=== PATIENT | female | born 1970 | race Caucasian/White ===

== ENCOUNTER 2017-11-09 07:48 | Day surgery (SDC) | payer OTHER ==
[~2017-11-09] VITALS: Ht 167.6 cm; Wt 84.5 kg
[~2017-11-09 07:48] MED LIST: AZIT250 PO; BELPTAB PO; CHOL10002 PO; CYCL10 PO; DULO60 PO; ERGO50000 PO; ESTR2 PO; ESTROGEN; HYDACE5 PO; HYDACE5325 PO; HYDGUAL120 PO; HYDR1TAB94 PO; HYOS.125 SL; IRON; MESA250ER PO; METPRE4DP PO; Norco 5-325 Ta1 EACH PO; PANT40 PO; PREG150 PO; PROM25 PO; SULTRIDS PO; TOPI100 PO; [UNRECOGNIZED DRUG - OTHER]
[2017-11-09] MEDS ORDERED: Neurontin300 MG (08:23)
[2017-11-09] MEDS ORDERED: Omeprazole20 M1 (08:23)
[2017-11-09] MEDS ORDERED: Zantac150 MG PO (08:23)
[2017-11-09] MEDS ORDERED: DULO60 PO (08:24)
[2017-11-09] MEDS ORDERED: TOPI100 (08:24)
[2017-11-09] MEDS ORDERED: SULF500A (08:24)
[2017-11-09] MEDS ORDERED: BUSP15 (08:24)
[2017-11-09] MEDS ORDERED: HYOS.125 (08:25)
[2017-11-09] MEDS ORDERED: ALBU90OI (08:25)
== END 2017-11-09 10:30 | disposition home or self-care (01) ==
LOC: ORSCSDS 07:48
PROVIDERS: Internal Medicine Gastroenterology
PROC: 0DBB8ZX Excision of Ileum, Via Natural or Artificial Opening Endoscopic, Diagnostic (ICD-10-PCS; principal; 2017-11-09 09:15)
PROC: 0DB68ZX Excision of Stomach, Via Natural or Artificial Opening Endoscopic, Diagnostic (ICD-10-PCS; principal; 2017-11-09 09:15)
DX: K50.90 Crohn's disease, unspecified, without complications (principal); K64.8 Other hemorrhoids; R13.10 Dysphagia, unspecified; K21.9 Gastro-esophageal reflux disease without esophagitis; K29.70 Gastritis, unspecified, without bleeding; Z87.11 Personal history of peptic ulcer disease; F17.210 Nicotine dependence, cigarettes, uncomplicated; Z79.899 Other long term (current) drug therapy
CPT/HCPCS: 88305; 88342; J0330; J1980; J2405

== ENCOUNTER 2018-05-31 00:28 | Day surgery (SDC) | payer OTHER ==
[~2018-05-31 00:28] MED LIST changes: +ALBU90OI; +BUSP15; +HYOS.125; +Neurontin300 MG; +Omeprazole20 M1; +SULF500A; +TOPI100; +Zantac150 MG PO
== END 2018-05-31 11:30 | disposition home or self-care (01) ==
LOC: ATC 00:28
DX: K50.90 Crohn's disease, unspecified, without complications (principal)
CPT/HCPCS: 96413; 96415; J7050; Q0163; Q5103

== ENCOUNTER 2018-06-14 07:50 | Day surgery (SDC) | payer OTHER | END 2018-06-14 11:00 | disposition home or self-care (01) | LOC: ATC 07:50 | DX: K50.90 Crohn's disease, unspecified, without complications (principal); Z79.899 Other long term (current) drug therapy | CPT/HCPCS: 96413; 96415; J7050; Q0163; Q5103 ==

== ENCOUNTER 2018-10-25 00:58 | Day surgery (SDC) | payer OTHER ==
[2018-10-25] MEDS ORDERED: INFLECTRA100 MG IV (08:18)
== END 2018-10-25 10:50 | disposition home or self-care (01) ==
LOC: ATC 00:58
DX: K50.90 Crohn's disease, unspecified, without complications (principal); K21.9 Gastro-esophageal reflux disease without esophagitis; F17.210 Nicotine dependence, cigarettes, uncomplicated
CPT/HCPCS: 96413; 96415; J7050; Q0163; Q5103

== ENCOUNTER 2019-01-06 00:11 | Day surgery (SDC) | payer OTHER ==
[~2019-01-06 00:11] MED LIST changes: +INFLECTRA100 MG IV
== END 2019-01-06 12:00 | disposition home or self-care (01) ==
LOC: ATC 00:11
DX: K50.80 Crohn's disease of both small and large intestine without complications (principal); F17.210 Nicotine dependence, cigarettes, uncomplicated; K21.9 Gastro-esophageal reflux disease without esophagitis; Z79.899 Other long term (current) drug therapy
CPT/HCPCS: J7050; Q0163; Q5103

== ENCOUNTER 2019-03-12 00:10 | Day surgery (SDC) | payer OTHER ==
[~2019-03-12 00:10] MED LIST changes: -INFLECTRA100 MG IV; -Omeprazole20 M1; -Zantac150 MG PO
[2019-07-14] MEDS ORDERED: VITAMIN D-32000 UNIT PO (14:46)
[2019-07-14] MEDS ORDERED: DULO60 PO (14:46)
[2019-07-14] MEDS ORDERED: Zantac150 MG PO (14:46)
[2019-07-14] MEDS ORDERED: INFLECTRA100 MG IV (14:47)
[2019-07-14] MEDS ORDERED: Omeprazole20 M1 (14:47)
[2019-07-14] MEDS ORDERED: DOCU100 PO (14:48)
[2019-07-14] MEDS ORDERED: ZOLP5 PO (14:48)
[2019-07-14] MEDS ORDERED: MELATONIN5 M1 PO (14:48)
== END 2019-03-12 12:25 | disposition home or self-care (01) ==
LOC: ATC 00:10
DX: K50.80 Crohn's disease of both small and large intestine without complications (principal); F17.210 Nicotine dependence, cigarettes, uncomplicated; K21.9 Gastro-esophageal reflux disease without esophagitis; Z79.899 Other long term (current) drug therapy
CPT/HCPCS: 96413; 96415; A9270; J7050; Q0163; Q5103

== ENCOUNTER 2019-05-09 00:19 | Day surgery (SDC) | payer OTHER ==
--- NOTE | 2019-05-09 09:46 | NUR ---
Pt given Loratadine instead of MD ordered diphenhydramine. Pharmacy notified that incorrect medication was put on EMAR and given. Pt already swallowed wrong medication while this RN checked order realizing to late that it was incorrect. PT states no allergies to loratadine. MD office and notified, talked with Tammi Romo MA. Will continue to monitor for any changes.
[2019-07-14] MEDS ORDERED: VITAMIN D-32000 UNIT PO (14:46)
[2019-07-14] MEDS ORDERED: Zantac150 MG PO (14:46)
[2019-07-14] MEDS ORDERED: DULO60 PO (14:46)
[2019-07-14] MEDS ORDERED: Omeprazole20 M1 (14:47)
[2019-07-14] MEDS ORDERED: INFLECTRA100 MG IV (14:47)
[2019-07-14] MEDS ORDERED: DOCU100 PO (14:48)
[2019-07-14] MEDS ORDERED: MELATONIN5 M1 PO (14:48)
[2019-07-14] MEDS ORDERED: ZOLP5 PO (14:48)
== END 2019-05-09 11:42 | disposition home or self-care (01) ==
LOC: ATC 00:19
DX: K50.00 Crohn's disease of small intestine without complications (principal); J45.909 Unspecified asthma, uncomplicated; K21.9 Gastro-esophageal reflux disease without esophagitis; F17.210 Nicotine dependence, cigarettes, uncomplicated; Z79.52 Long term (current) use of systemic steroids; Z79.899 Other long term (current) drug therapy; Z88.8 Allergy status to other drugs, medicaments and biological substances; Z91.018 Allergy to other foods
CPT/HCPCS: 96413; 96415; A9270; J7050; Q5103

== ENCOUNTER 2019-07-04 00:08 | Day surgery (SDC) | payer OTHER ==
[2019-07-14] MEDS ORDERED: Zantac150 MG PO (14:46)
[2019-07-14] MEDS ORDERED: DULO60 PO (14:46)
[2019-07-14] MEDS ORDERED: VITAMIN D-32000 UNIT PO (14:46)
[2019-07-14] MEDS ORDERED: INFLECTRA100 MG IV (14:47)
[2019-07-14] MEDS ORDERED: Omeprazole20 M1 (14:47)
[2019-07-14] MEDS ORDERED: MELATONIN5 M1 PO (14:48)
[2019-07-14] MEDS ORDERED: ZOLP5 PO (14:48)
[2019-07-14] MEDS ORDERED: DOCU100 PO (14:48)
== END 2019-07-04 23:04 | disposition home or self-care (01) ==
LOC: ATC 00:08
DX: K50.90 Crohn's disease, unspecified, without complications (principal); K21.9 Gastro-esophageal reflux disease without esophagitis; J45.909 Unspecified asthma, uncomplicated; F17.210 Nicotine dependence, cigarettes, uncomplicated; M79.7 Fibromyalgia; M19.90 Unspecified osteoarthritis, unspecified site; G43.909 Migraine, unspecified, not intractable, without status migrainosus; F41.9 Anxiety disorder, unspecified; G62.9 Polyneuropathy, unspecified; Z79.899 Other long term (current) drug therapy; Z79.52 Long term (current) use of systemic steroids; Z91.041 Radiographic dye allergy status; Z91.018 Allergy to other foods; Z88.6 Allergy status to analgesic agent

== ENCOUNTER 2019-08-20 00:12 | Day surgery (SDC) | payer OTHER ==
[~2019-08-20 00:12] MED LIST changes: +DOCU100 PO; +INFLECTRA100 MG IV; +MELATONIN5 M1 PO; +Omeprazole20 M1; +VITAMIN D-32000 UNIT PO; +ZOLP5 PO; +Zantac150 MG PO
== END 2019-08-20 22:38 | disposition home or self-care (01) ==
LOC: ATC 00:12
DX: K50.80 Crohn's disease of both small and large intestine without complications (principal); K21.9 Gastro-esophageal reflux disease without esophagitis; M79.7 Fibromyalgia; J45.909 Unspecified asthma, uncomplicated; F41.9 Anxiety disorder, unspecified; M50.30 Other cervical disc degeneration, unspecified cervical region; G47.00 Insomnia, unspecified; Z87.891 Personal history of nicotine dependence; Z91.018 Allergy to other foods; Z91.041 Radiographic dye allergy status; Z88.6 Allergy status to analgesic agent; Z90.49 Acquired absence of other specified parts of digestive tract; Z98.0 Intestinal bypass and anastomosis status; Z79.899 Other long term (current) drug therapy
CPT/HCPCS: 96413; 96415; A9270; J7050; Q0163; Q5103

== ENCOUNTER 2020-02-18 00:11 | Day surgery (SDC) | payer OTHER ==
[2020-02-18] MEDS ORDERED: CYCL10 PO (14:45)
[2020-02-18] MEDS ORDERED: Flonase 0.05% N16 GM (14:46)
[2020-02-18] MEDS ORDERED: GABA100 PO (14:47)
[2020-02-18] MEDS ORDERED: Sulfazine500 MG PO (14:48)
[2020-02-18] MEDS ORDERED: Imitrex100 MG PO (14:51)
[2020-02-18] MEDS ORDERED: ONDA4 PO (14:52)
[2020-02-18] MEDS ORDERED: Ventolin/Prove6.7 GM INH (14:53)
== END 2020-02-18 14:40 | disposition home or self-care (01) ==
LOC: ATC 00:11
DX: M77.11 Lateral epicondylitis, right elbow (principal); J45.909 Unspecified asthma, uncomplicated; Z87.891 Personal history of nicotine dependence; Z88.8 Allergy status to other drugs, medicaments and biological substances; Z91.018 Allergy to other foods; Z79.899 Other long term (current) drug therapy
CPT/HCPCS: 96375; 96413; 96415; A9270; J1720; J7050; Q0163; Q5103

== ENCOUNTER 2020-04-02 01:47 | Day surgery (SDC) | payer OTHER ==
[~2020-04-02 01:47] MED LIST changes: +Flonase 0.05% N16 GM; +GABA100 PO; +Imitrex100 MG PO; +ONDA4 PO; +Sulfazine500 MG PO; +Ventolin/Prove6.7 GM INH
== END 2020-04-02 11:24 | disposition home or self-care (01) ==
LOC: ATC 01:47
DX: K50.90 Crohn's disease, unspecified, without complications (principal); M77.11 Lateral epicondylitis, right elbow; Z87.891 Personal history of nicotine dependence; Z88.8 Allergy status to other drugs, medicaments and biological substances; Z91.018 Allergy to other foods
CPT/HCPCS: 96375; 96413; 96415; A9270; J1720; J7050; Q0163; Q5103

== ENCOUNTER 2021-06-22 00:50 | Day surgery (SDC) | payer OTHER ==
[~2021-06-22 00:50] MED LIST changes: +LINZESS290 MCG PO
[2021-06-22] MEDS ORDERED: TIZA4 PO (08:54)
[2021-06-22] MEDS ORDERED: HYDROCODONE-AC1 EA14 PO (08:55)
[2021-06-22] MEDS ORDERED: PREG25 PO (08:55)
== END 2021-06-22 11:25 | disposition home or self-care (01) ==
LOC: ATC 00:50
DX: K50.90 Crohn's disease, unspecified, without complications (principal); Z90.710 Acquired absence of both cervix and uterus; Z87.891 Personal history of nicotine dependence
CPT/HCPCS: 96413; 96415; A9270; J7050; Q5103

== ENCOUNTER 2021-08-03 01:50 | Day surgery (SDC) | payer OTHER ==
[~2021-08-03 01:50] MED LIST changes: +HYDROCODONE-AC1 EA14 PO; +PREG25 PO; +TIZA4 PO
== END 2021-08-03 17:08 | disposition home or self-care (01) ==
LOC: ATC 01:50
DX: K50.90 Crohn's disease, unspecified, without complications (principal); K21.9 Gastro-esophageal reflux disease without esophagitis; Z88.8 Allergy status to other drugs, medicaments and biological substances; Z79.899 Other long term (current) drug therapy
CPT/HCPCS: 96413; 96415; A9270; J7050; Q5103

== ENCOUNTER → 2021-10-10 | Outpatient (CLI) | payer OTHER ==
[~2021-10-10] MED LIST changes: +ALBU8HFA2 INH; +Capzasin-Hp42.5 GM TOP; +HYDROCODONE-AC1 EAC7 PO; +PREGABALIN150 M5 PO; +VICODIN HP 10-1 EAC1 PO
[2021-10-10 19:13] LABS: BASOPHILS ABSOLUTE AUTO 0.07 K/mm3 (0.00-0.23); BASOPHILS PERCENT AUTO 1 % (0-2); EOSINOPHILS ABSOLUTE AUTO 0.29 K/mm3 (0.00-0.68); EOSINOPHILS PERCENT AUTO 5 % (0-6); Hematocrit 38.3 % (33.0-51.0); Hemoglobin 12.4 g/dL (11.5-16.0); IMMATURE GRAN ABSOLUTE AUTO 0.01 K/mm3 (0.00-0.10); IMMATURE GRAN PERCENT AUTO 0 % (0-1); LYMPHOCYTES ABSOLUTE AUTO 3.17 K/mm3 (0.84-5.20); LYMPHOCYTES PERCENT AUTO 52 % (21-46); MONOCYTES ABSOLUTE AUTO 0.39 K/mm3 (0.16-1.47); MONOCYTES PERCENT AUTO 6 % (4-13); Mean Corpuscular HGB 29.8 pg (26.0-34.0); Mean Corpuscular HGB Conc 32.4 g/dL (31.5-36.5); Mean Corpuscular Volume 92 fL (80-100); Mean Platelet Volume 10.3 fL (9.1-12.4); NEUTROPHILS ABSOLUTE AUTO 2.12 K/mm3 (1.96-9.15); NEUTROPHILS PERCENT AUTO 35 % (41-73); Platelet Count 314 K/mm3 (150-400); RDW Coefficient Variation 11.8 % (11.7-14.2); RDW Standard Deviation 39.8 fL (35.1-46.3); Red Blood Cell Count 4.16 M/mm3 (3.80-5.20); White Blood Cell Count 6.05 K/mm3 (4.00-11.30)
[2021-10-10 20:44] LABS: Adenovirus Not Detected (NOT DETECT); Bordetella pertussis Not Detected (NOT DETECT); Chlamydophila pneumoniae Not Detected (NOT DETECT); Coronavirus 229E Not Detected (NOT DETECT); Coronavirus HKU1 Not Detected (NOT DETECT); Coronavirus NL63 Not Detected (NOT DETECT); Coronavirus OC43 Not Detected (NOT DETECT); Human Metapneumovirus Not Detected (NOT DETECT); Human Rhinovirus/Enterovirus Not Detected (NOT DETECT); Influenza A/2009-H1 Not Detected (NOT DETECT); Influenza A/H1 Not Detected (NOT DETECT); Influenza A/H3 Not Detected (NOT DETECT); Influenza B Not Detected (NOT DETECT); Mycoplasma pneumoniae Not Detected (NOT DETECT); Parainfluenza Virus 1 Not Detected (NOT DETECT); Parainfluenza Virus 2 Not Detected (NOT DETECT); Parainfluenza Virus 3 Not Detected (NOT DETECT); Parainfluenza Virus 4 Not Detected (NOT DETECT); Respiratory Syncytial Virus Not Detected (NOT DETECT); SARS-Cov-2 (COVID-19), BioFire Not Detected (NOT DETECT)
== END | disposition home or self-care (01) ==
LOC: LAB SHORT 17:50
PROVIDERS: Nurse Practitioner
DX: J06.9 Acute upper respiratory infection, unspecified (principal); R05.9 Cough, unspecified; R50.9 Fever, unspecified
CPT/HCPCS: 0202U; 85025; 86308

== ENCOUNTER → 2023-09-03 | Outpatient (CLI) | payer OTHER ==
[~2023-09-03] MED LIST changes: +MIRALAX17 GM PO; +Percocet 10-321 EACH PO; -VITAMIN D-32000 UNIT PO; +Vitamin D1000 UNI1 PO
[2023-09-03 10:33] LABS: Source, Urine Clean Catch
[2023-09-03 13:12] LABS: Appearance, Urine Clear (Clear); Bilirubin, Urine Neg (Neg); Blood, Urine Neg (Neg); Color, Urine Yellow (P-Yellow); Glucose Qualitative, Urine Neg (Neg); Ketones, Urine Neg (Neg); Leukocyte Esterase, Urine Neg (Neg); Nitrite, Urine Neg (Neg); Protein, Urine Neg (Neg); Urobilinogen, Urine NORM (Normal)
[2023-09-03 16:05] LABS: Candida species (DNA Probe) Negative (NEGATIVE); G. vaginalis (DNA Probe) Negative (NEGATIVE); T. vaginalis (DNA Probe) Negative (NEGATIVE)
== END | disposition home or self-care (01) ==
LOC: LAB 10:31 → LAB SHORT 10:31
PROVIDERS: Obstetrics & Gynecology
DX: R30.0 Dysuria (principal); N76.0 Acute vaginitis
CPT/HCPCS: 81003; 87480; 87510; 87660

== ENCOUNTER → 2024-06-16 | Outpatient (CLI) | payer OTHER | LOC: LAB 08:25 → LAB SHORT 08:25 | DX: R30.0 Dysuria (principal) | CPT/HCPCS: 87077; 87086; 87147; 87186 ==